=== PATIENT | female | born 1990 | race Caucasian/White ===

== ENCOUNTER → 2016-05-05 | Outpatient (CLI) | payer OTHER ==
--- NOTE | 2016-05-05 08:35 | US ---
EXAMINATION TYPE: US gallbladder DATE OF EXAM: 05/05/2016 7:57 AM COMPARISON: NONE CLINICAL HISTORY: K81.0 CHOLYSISTITIS, nausea and vomiting. EXAM MEASUREMENTS: Liver Length: 15.2 cm Gallbladder Wall: 0.2 cm CBD: 0.2 cm Right Kidney: 10.1 x 4.1 x 5.0 cm Findings: Pancreas: tail obscured by bowel gas Liver: Increased attenuation Gallbladder: cholelithiasis Evidence for sonographic Small's sign: no CBD: wnl Right Kidney: wnl IMPRESSION: 1. Cholelithiasis
== END | disposition home or self-care (01) ==
LOC: RADUSWWP 07:34
PROVIDERS: ATTEND Family Medicine
DX: K80.20 Calculus of gallbladder without cholecystitis without obstruction (principal)
CPT/HCPCS: 76705

== ENCOUNTER 2016-06-08 11:29 | Day surgery (SDC) | payer OTHER ==
[2016-06-05 13:18] VITALS: BMI 40.0
[~2016-06-08 11:29] MED LIST: LACTATED RINGERS 1,000 ML IV SCH
[2016-06-08 12:07] VITALS: TEMP 98
[2016-06-08] MEDS ORDERED: LACTATED RINGERS 1,000 ML IV ONE (12:18)
[2016-06-08] MEDS ORDERED: LIDOCAINE 1% 20 ML VIAL (10MG/ML) FOR IV START INTRADERMA ONE (12:19)
[2016-06-08] MEDS ORDERED: PROPOFOL 10 MG/ML 20 ML VIAL IV ONE (12:35)
--- NOTE | 2016-06-08 12:40 | P.GSHP ---
History of Present Illness H&P Date: 06/08/16 Chief Complaint: GERD This is a 26-year-old female who presents today for EGD. She's had issues with GERD. - Constitutional Constitutional: Reports as per HPI Past Medical History Past Medical History: Thyroid Disorder Additional Past Medical History / Comment(s): BACK PAIN, hx of anemia History of Any Multi-Drug Resistant Organisms: None Reported Past Surgical History: Appendectomy, Section, Orthopedic Surgery, Tonsillectomy Additional Past Surgical History / Comment(s): ORIF LEFT ANKLE. REPAIR OF ASD IN 1999 (OCCLUDER) Past Anesthesia/Blood Transfusion Reactions: No Reported Reaction Past Psychological History: No Psychological Hx Reported Smoking Status: Never smoker Past Alcohol Use History: None Reported Past Drug Use History: None Reported - Past Family History Mother Family Medical History: No Reported History Medications and Allergies Home Medications Medication Instructions Recorded Confirmed Type Iron 1 tab PO DAILY 08/14/14 06/05/16 History Levothyroxine Sodium [Synthroid] 175 mcg PO QAM 08/14/14 06/08/16 History Multivitamins, Thera [Theragran] 1 each PO DAILY 08/14/14 06/05/16 History Escitalopram [Lexapro] 10 mg PO HS 06/05/16 06/08/16 History Allergies Allergy/AdvReac Type Severity Reaction Status Date / Time No Known Allergies Allergy Verified 06/05/16 13:13 Surgical - Exam Vital Signs Temp Pulse Resp BP Pulse Ox 98.0 F 80 18 128/87 98 06/08/16 12:06 06/08/16 12:06 06/08/16 12:06 06/08/16 12:06 06/08/16 12:06 - General well developed, no distress - Eyes PERRL - ENT normal pinna - Neck no masses - Respiratory normal expansion - Cardiovascular Rhythm: regular - Abdomen Abdomen: soft Assessment and Plan Plan: GERD. We'll perform EGD.
--- NOTE | 2016-06-08 12:51 | P.OP ---
Date of Procedure: 06/08/16 Preoperative Diagnosis: GERD Postoperative Diagnosis: Antral gastritis Hiatal hernia Mild esophagitis Procedure(s) Performed: EGD Anesthesia: MAC Surgeon: Tristen Brennan Pathology: other (Antrum, esophagus) Condition: stable Disposition: PACU Description of Procedure: The patient's placed on the endoscopy table in the lateral position. She received IV sedation. The gastroscope some placed oropharynx and passed into the esophagus and into the stomach. Scope was then placed through the pylorus. The first and second portion of the duodenum appeared normal. Scope was then brought back into the antrum and this appeared mildly inflamed. A biopsies performed. The scope was retroflexed and the remainder of the stomach appeared normal. There was a hiatal hernia visualized. The GE junction was at 39 cm. The distal esophagus appeared normal. This area was biopsied. The proximal esophagus appeared normal. The scope was then withdrawn for patient.
[2016-06-08 12:59] VITALS: BP 102/71; PULSE 67; RESP 16
== END 2016-06-08 13:47 | disposition home or self-care (01) ==
LOC: ORWHC2ENDO 11:29
PROVIDERS: ATTEND Surgery
DX: K21.0 Gastro-esophageal reflux disease with esophagitis (principal); K44.9 Diaphragmatic hernia without obstruction or gangrene; K29.50 Unspecified chronic gastritis without bleeding; E07.9 Disorder of thyroid, unspecified; F32.9 Major depressive disorder, single episode, unspecified; Z79.899 Other long term (current) drug therapy
CPT/HCPCS: 81025; 88305; 88342; 43239; J2704

== ENCOUNTER 2016-06-12 12:25 | Inpatient (IN) | payer OTHER ==
[2016-06-26 11:10] VITALS: BMI 38.4
[2016-07-03] MEDS ORDERED: ceFAZolin 2 GM in SODIUM CHLORIDE 0.9% 100 ML IVPB ONE (05:00)
[2016-07-03] MEDS ORDERED: HEPARIN SODIUM,PORCINE 5,000 UNIT/ML 1 ML VIAL SQ ONE (05:00)
[2016-07-03] MEDS ORDERED: LACTATED RINGERS 1,000 ML IV SCH (05:29)
[2016-07-03] MEDS ORDERED: SCOPOLAMINE 1.5MG/72HR PATCH TRANSDERM ONE (05:29)
[2016-07-03] MEDS ORDERED: MIDAZOLAM 2 MG/2 ML VIAL IV PRN (05:29)
[2016-07-03] MEDS ORDERED: DEXAMETHASONE SOD PHOSPHATE 10 MG/ML 1 ML VIAL IV ONE (05:29)
[2016-07-03] MEDS ORDERED: ONDANSETRON 4 MG/2 ML VIAL IVP ONE (05:29)
[2016-07-03] MEDS ORDERED: LIDOCAINE 1% 20 ML VIAL (10MG/ML) FOR IV START INTRADERMA PRN (05:29)
--- NOTE | 2016-07-03 13:26 | P.GSHP ---
History of Present Illness H&P Date: 07/03/16 Chief Complaint: GERD, right upper quadrant pain This a 26-year-old female who presents with GERD and right upper quadrant pain. Patient's found have gallstones on ultrasound.The patient has had long- standing problems with reflux esophagitis. The patient underwent recent EGD is found have evidence of esophagitis. Patient has been well informed on the procedure of laparoscopic Love fundoplication. The patient is aware the risk of the conversion to the open procedure, risk of injury to the stomach, liver and spleen. The patient is also a risk of recurrent GERD and dysphagia symptoms. The patient understands there is a postoperative diet of full liquids for 2 weeks after surgery. - Constitutional Constitutional: Reports as per HPI Past Medical History Past Medical History: GERD/Reflux, Thyroid Disorder Additional Past Medical History / Comment(s): hiatal hernia, hx of anemia, hx heart murmer/ASD, varicose vein, gallstones, History of Any Multi-Drug Resistant Organisms: None Reported Past Surgical History: Appendectomy, Section, Orthopedic Surgery, Tonsillectomy Additional Past Surgical History / Comment(s): ORIF LEFT ANKLE. REPAIR OF ASD IN 1999 (amplatzer device) Past Anesthesia/Blood Transfusion Reactions: No Reported Reaction Past Psychological History: No Psychological Hx Reported Smoking Status: Never smoker Past Alcohol Use History: None Reported Past Drug Use History: None Reported - Past Family History Mother Family Medical History: No Reported History Medications and Allergies Home Medications Medication Instructions Recorded Confirmed Type Iron 18 mg PO DAILY 08/14/14 07/03/16 History Multivitamins, Thera [Theragran] 1 each PO DAILY 08/14/14 07/03/16 History Escitalopram [Lexapro] 10 mg PO HS 06/05/16 07/03/16 History Levothyroxine Sodium [Synthroid] 200 mcg PO QAM 06/26/16 07/03/16 History Allergies Allergy/AdvReac Type Severity Reaction Status Date / Time No Known Allergies Allergy Verified 07/03/16 11:47 Surgical - Exam Vital Signs Temp Pulse Resp BP Pulse Ox 98.0 F 91 16 106/68 96 07/03/16 11:44 07/03/16 11:44 07/03/16 11:44 07/03/16 11:44 07/03/16 11:44 - General well developed, no distress - Eyes PERRL - ENT normal pinna - Neck no masses - Respiratory normal expansion - Cardiovascular Rhythm: regular - Abdomen Mild right upper quadrant pain Abdomen: soft Assessment and Plan Plan: GERD. We'll perform laparoscopic Love fundal plication. Cholelithiasis, right upper quadrant pain. We'll perform laparoscopic cholecystectomy.
[2016-07-03] MEDS ORDERED: ROCURONIUM BROMIDE 10 MG/ML 10 ML VIAL IV ONE (13:29)
[2016-07-03] MEDS ORDERED: PROPOFOL 10 MG/ML 20 ML VIAL IV ONE (13:29)
[2016-07-03] MEDS ORDERED: MIDAZOLAM 2 MG/2 ML VIAL ONE (13:29)
[2016-07-03] MEDS ORDERED: HYDROmorphone (PF) 1 MG/ML ONE (13:29)
[2016-07-03] MEDS ORDERED: GLYCOPYRROLATE 0.2 MG/ML 2 ML VIAL ONE (13:29)
[2016-07-03] MEDS ORDERED: fentaNYL (PF) 50 MCG/ML 2 ML AMP ONE (13:29)
[2016-07-03] MEDS ORDERED: NEOSTIGMINE 1 MG/ML 10 ML VIAL ONE (13:29)
[2016-07-03] MEDS ORDERED: SUCCINYLCHOLINE CHLORIDE 100 MG/5 ML SYR IV ONE (13:29)
[2016-07-03] MEDS ORDERED: LIDOCAINE 1% INJ 10MG/ML (20 ML MDV) ONE (13:29)
[2016-07-03] MEDS ORDERED: BUPIVACAIN-EPI 0.25%-1:200,000 30 ML VIAL SQ ONE (14:02)
[2016-07-03] MEDS ORDERED: ACETAMINOPHEN TAB 325 MG TAB PO PRN (14:58)
[2016-07-03] MEDS ORDERED: NALOXONE 0.4 MG/ML 1 ML VIAL IV PRN (14:58)
--- NOTE | 2016-07-03 14:58 | P.OP ---
Date of Procedure: 07/03/16 Preoperative Diagnosis: GERD Cholelithiasis Cholecystitis Postoperative Diagnosis: GERD Cholecystitis Cholelithiasis Procedure(s) Performed: Laparoscopic Love fundoplication Laparoscopic cholecystectomy Anesthesia: RUTHIE Surgeon: Tristen Brennan Estimated Blood Loss (ml): 29 Pathology: other (Gallbladder) Condition: stable Disposition: PACU Description of Procedure: The patient was placed on the operating table in the supine position. The patient received general anesthesia. And was placed in dorsal lithotomy position. The patient was prepped and draped in the usual sterile fashion. The skin incision sites were anesthetized with 1% local Xylocaine. The skin was incised in the left periumbilical area and then using a blade less 5 mm trocar under direct visualization panel cavity was entered. After adequate insufflation the laparoscope was then placed into the peritoneal cavity. Next a 5 mm trochars placed in the right epigastric position. Another 5 millimeter trocar the right lateral position. Another 5 millimeter trocar in the left lateral position a 5 mm trocar is placed in the left epigastric position. And then the initial 5 mm trocar was exchanged for a 10 mm trocar. The left lateral lobe liver was retracted. The hernia was seen. The crural defect was then dissected using the Harmonic scissors device. A 360 crural dissection was performed the esophagus stomach was reduced back into the peritoneal Cavity. The crural defect was then closed using 2-0 Ethibond suture. Next the fundus of the stomach was mobilized using the Centerpoint scissors device. and then a 58-Sinhala bougie dilator was placed oropharynx passed into the esophagus and stomach the fundal plication wrap was then performed by grasping the fundus posteriorly and bringing it around the esophagus and stomach fundoplication was then performed using 2-0 Ethibond suture. Care was taken that the fundal location rested over top of the intra-abdominal esophagus. There was no injury seen to the stomach or esophagus. The dilator was then withdrawn. The abdomen was irrigated there is no bleeding seen. Next, a 5 mm trocar was placed at the umbilicus and another 5 mm trocar was placed in the right subcostal area. The patient's placed in the right side up. The camera was repositioned to the umbilicus. The gallbladder is visualized entering the gallbladder is grasped the fundus and infundibulum. Traction the gallbladder was placed in the lateral and cephalad positionsr. The cystic duct was then bluntly dissected the cystic duct was seen entering the common bile duct. The cystic duct was then clipped using a 5 mm laparoscopic clipper and then the cystic duct was divided using Harmonic scissors. The cystic artery was then divided with the Harmonic scissors. The gallbladder was then removed from the liver bed using the Harmonic scissors. The gallbladder was then brought up through the epigastric 8 mm trocar. The liver bed was inspected for bleeding. There is no bleeding seen. The abdomen was irrigated. The trochars were then withdrawn and then skin incision sites were closed using 3-0 Monocryl suture Steri-Strips are applied. Patient thought procedure well and sent to recovery room in stable condition.
[2016-07-03] MEDS: HYDROmorphone 1 MG/ML 1 ML SYRINGE IVP PRN ×4 (15:12→22:35)
[2016-07-03] MEDS ORDERED: LACTATED RINGERS 1,000 ML IV ONE (16:30)
[2016-07-03] MEDS: HYDROcodone/APAP 5-325MG 1 EACH TAB PO PRN (20:36)
[2016-07-03] MEDS: HEPARIN SODIUM,PORCINE 5,000 UNIT/ML 1 ML VIAL SQ SCH (20:36)
[2016-07-03] MEDS: LACTATED RINGERS 1,000 ML IV ONE (20:36)
[2016-07-03] MEDS: ONDANSETRON 4 MG/2 ML VIAL IVP PRN (20:59)
[2016-07-04] MEDS: diphenhydrAMINE 25 MG CAP PO PRN ×3 (00:29→12:55)
[2016-07-04] MEDS: HYDROmorphone 1 MG/ML 1 ML SYRINGE IVP PRN ×2 (01:38→06:32)
[2016-07-04] MEDS: HYDROcodone/APAP 5-325MG 1 EACH TAB PO PRN ×3 (03:28→15:34)
[2016-07-04] MEDS: LACTATED RINGERS 1,000 ML IV ONE (03:30)
[2016-07-04] MEDS: ONDANSETRON 4 MG/2 ML VIAL IVP PRN (06:31)
--- NOTE | 2016-07-04 08:39 | FL ---
EXAMINATION TYPE: FL UGI w esophagus DATE OF EXAM: 07/04/2016 8:35 AM COMPARISON: NONE HISTORY: Cholecystectomy and Love fundoplication. TECHNIQUE: A single contrast UGI study is performed. FINDINGS: There is prompt egress of contrast out of the esophagus into the stomach. There is no evide nce of extravasation. The ligament of Treitz is in normal location. There are gallbladder clips in th e right upper quadrant. IMPRESSION: 1. Status post Love fundoplication. 2. Status post cholecystectomy.
[2016-07-04] MEDS: HEPARIN SODIUM,PORCINE 5,000 UNIT/ML 1 ML VIAL SQ SCH (09:29)
[2016-07-04 11:32] VITALS: BP 110/66; PULSE 106; RESP 20; TEMP 98.4
--- NOTE | 2016-07-04 14:58 | P.PN ---
Progress Note - Text The patient is a day 1 post laparoscopic cholecystectomy and Love fundoplication and she is stable. Tolerating a diet. Minimal abdominal discomfort. No nausea or vomiting. Upper GI barium swallow was unremarkable. On examination the patient is awake alert comfortable vitals and normal temperature is normal. Abdomen is quite soft usual postoperative tenderness. Trocar sites are clean without infection. Impression doing well postop. Recommendation continued discharge from a surgical standpoint. Routine. Dr. Brennan In a week. Joe For pain.
== END 2016-07-04 15:41 | disposition home or self-care (01) | DRG 419 ==
LOC: 2ORWHC 07-03 11:19 → 6PED 07-03 14:43
PROVIDERS: ADMIT Surgery; ATTEND Surgery
PROC: 0FT44ZZ Resection of Gallbladder, Percutaneous Endoscopic Approach (ICD-10-PCS; principal; 2016-07-03 12:30)
PROC: 0DV44ZZ Restriction of Esophagogastric Junction, Percutaneous Endoscopic Approach (ICD-10-PCS; 2016-07-03 12:30)
DX: K80.10 Calculus of gallbladder with chronic cholecystitis without obstruction (principal); E07.9 Disorder of thyroid, unspecified; K21.0 Gastro-esophageal reflux disease with esophagitis; K44.9 Diaphragmatic hernia without obstruction or gangrene; I83.90 Asymptomatic varicose veins of unspecified lower extremity; F39 Unspecified mood [affective] disorder; Z71.3 Dietary counseling and surveillance; Z90.49 Acquired absence of other specified parts of digestive tract; Z87.81 Personal history of (healed) traumatic fracture; Z87.74 Personal history of (corrected) congenital malformations of heart and circulatory system; Z79.899 Other long term (current) drug therapy
CPT/HCPCS: 74240; 88304

== ENCOUNTER → 2016-07-01 | Outpatient (CLI) | payer OTHER ==
[2016-07-01 17:33] LABS: Basophils % (A) 0 %; CHCM 33.7; Eosinophils # (A) 0.2 k/uL (0-0.7); Eosinophils % (A) 2 %; HCT 43.4 % (34.0-46.0); HGB 14.5 gm/dL (11.4-16.0); Luc % (Auto) 2; Lymphocytes % (A) 23 %; MCH 29.9 pg (25.0-35.0); MCHC 33.4 g/dL (31.0-37.0); MCV 89.6 fL (80.0-100.0); Monocytes # (A) 0.4 k/uL (0-1.0); Monocytes % (A) 5 %; Neutrophils # (A) 5.8 k/uL (1.3-7.7); Neutrophils % (A) 67 %; RBC 4.84 m/uL (3.80-5.40); RDW 13.2 % (11.5-15.5); WBC 8.7 k/uL (3.8-10.6); WBC (Perox) 8.37
== END ==
LOC: LABPAT 17:22
PROVIDERS: ATTEND Surgery
DX: Z01.812 Encounter for preprocedural laboratory examination (principal)
CPT/HCPCS: 85025

== ENCOUNTER → 2018-11-12 | Outpatient (CLI) | payer OTHER ==
[2018-11-12 12:08] LABS: Basophils % (A) 0 %; Eosinophils # (A) 0.2 k/uL (0-0.7); Eosinophils % (A) 3 %; HCT 40.2 % (34.0-46.0); HGB 12.6 gm/dL (11.4-16.0); Lymphocytes # (A) 1.4 k/uL (1.0-4.8); Lymphocytes % (A) 26 %; MCH 28.9 pg (25.0-35.0); MCHC 31.3 g/dL (31.0-37.0); MCV 92.1 fL (80.0-100.0); Mean Platelet Volume 6.1; Monocytes # (A) 0.4 k/uL (0-1.0); Monocytes % (A) 8 %; Neutrophils # (A) 3.1 k/uL (1.3-7.7); Neutrophils % (A) 59 %; Platelet Count 356 k/uL (150-450); RBC 4.37 m/uL (3.80-5.40); WBC 5.3 k/uL (3.8-10.6)
== END | disposition home or self-care (01) ==
LOC: LABWHC1 11:36
PROVIDERS: ATTEND Psychiatry & Neurology Psychiatry
DX: F32.9 Major depressive disorder, single episode, unspecified (principal)
CPT/HCPCS: 36415; 84439; 84443; 84479; 85025

== ENCOUNTER → 2019-05-24 | Outpatient (CLI) | payer OTHER ==
--- NOTE | 2019-05-24 14:03 | FL ---
EXAMINATION TYPE: FL UGI air w esophagus DATE OF EXAM: 05/24/2019 COMPARISON: Prior exam 07/04/2016 HISTORY: Dysphasia TECHNIQUE: A double contrast UGI study is performed. FINDINGS: Patient unable to retain the crystals for maximal distensibility The esophagus shows abnormal filling defect along the anterior wall the proximal cervical esophagus a t approximately the C3-4 level. The stomach shows normal distensibility, peristalsis, and mucosal folds. Postprocedural changes noted at the gastroesophageal junction compatible with Love fundoplication. No evidence of any mass or u lcer disease. No significant gastroesophageal reflux was seen during real time performance of this s tudy. The duodenal bulb, sweep, and proximal small bowel loops are unremarkable. 2 minutes 29 seconds fluoroscopy time, 176 images obtained IMPRESSION: There is some hesitancy in initiating the swallow. Abnormal filling defect along the prox imal aspect of the esophagus as described, recommend direct visualization.
== END | disposition home or self-care (01) ==
LOC: RADFLMAIN 09:18
PROVIDERS: ATTEND Surgery
DX: R93.5 Abnormal findings on diagnostic imaging of other abdominal regions, including retroperitoneum (principal)
CPT/HCPCS: 74246

== ENCOUNTER 2019-05-26 07:25 | Day surgery (SDC) | payer OTHER ==
[2019-05-24 11:26] VITALS: BMI 37.5
[~2019-05-26 07:25] MED LIST changes: +LIDOCAINE 1% 20 ML VIAL (10MG/ML) FOR IV START INTRADERMA PRN
[2019-05-26 07:44] VITALS: RESP 16; TEMP 97
[2019-05-26] MEDS ORDERED: LIDOCAINE 1% INJ 10MG/ML (20 ML MDV) ONE (08:06)
[2019-05-26] MEDS ORDERED: PROPOFOL 10 MG/ML 20 ML VIAL IV ONE (08:06)
--- NOTE | 2019-05-26 08:10 | P.GSHP ---
History of Present Illness H&P Date: 05/26/19 Chief Complaint: Dysphagia This a 29-year-old female who has had complaints of dysphagia. Patient Nolantz today for EGD. Her recent esophagram shows a possible area of narrowing in the proximal esophagus. She will undergo direct visualization today with EGD. Past Medical History Past Medical History: GERD/Reflux, Thyroid Disorder Additional Past Medical History / Comment(s): hiatal hernia, hx of anemia, hx heart murmer/ASD, varicose vein, gallstones History of Any Multi-Drug Resistant Organisms: None Reported Past Surgical History: Appendectomy, Section, Cholecystectomy, Orthopedic Surgery, Tonsillectomy Additional Past Surgical History / Comment(s): ORIF LEFT ANKLE. REPAIR OF ASD IN 1999 (amplatzer device),larry parker,c sect x2 Past Anesthesia/Blood Transfusion Reactions: No Reported Reaction, Motion Sickness Smoking Status: Never smoker - Past Family History Mother Family Medical History: No Reported History Medications and Allergies Home Medications Medication Instructions Recorded Confirmed Type Iron 325 mg PO DAILY 08/14/14 05/24/19 History Levothyroxine Sodium [Synthroid] 175 mcg PO QAM 06/26/16 05/24/19 History Calcium Carbonate [Calcium] 600 mg PO DAILY 05/24/19 05/24/19 History Labetalol HCl 100 mg PO TID 05/24/19 05/24/19 History Pnv No.95/Ferrous Fum/Folic AC 1 each PO DAILY 05/24/19 05/24/19 History [ Multivitamin Tablet] Sertraline HCl [Zoloft] 150 mg PO QAM 05/24/19 05/24/19 History buPROPion XL [Wellbutrin Xl] 150 mg PO QAM 05/24/19 05/24/19 History lamoTRIgine 100 mg PO HS 05/24/19 05/24/19 History Allergies Allergy/AdvReac Type Severity Reaction Status Date / Time Milk Containing Products Allergy Nausea & Verified 05/24/19 11:17 [Dairy] Vomiting,abdominal cramping Surgical - Exam Vital Signs Temp Pulse Resp BP Pulse Ox 97 F L 84 16 150/76 97 05/26/19 07:43 05/26/19 07:43 05/26/19 07:43 05/26/19 07:43 05/26/19 07:43 - General well developed, well nourished, no distress - Eyes PERRL - ENT normal pinna - Neck no masses - Respiratory normal expansion - Cardiovascular Rhythm: regular - Abdomen Abdomen: soft, non tender Assessment and Plan Assessment: Dysphagia. We'll perform EGD.
--- NOTE | 2019-05-26 08:19 | P.OP ---
Date of Procedure: 05/26/19 Preoperative Diagnosis: Dysphagia Postoperative Diagnosis: Antral gastritis Procedure(s) Performed: EGD Anesthesia: MAC Surgeon: Tristen Brennan Estimated Blood Loss (ml): 5 Pathology: other (Antrum) Condition: stable Disposition: PACU Description of Procedure: The patient's placed on the endoscopy table in the lateral position. She received IV sedation. The gastroscope placed oropharynx and passed in the esophagus and into the stomach. Scope was then placed through the pylorus. The first and second portion of the duodenum appeared normal. Scope was then brought back the antrum this. Mildly inflamed. A biopsies performed. Scope was retroflexed and the remainder stomach appeared normal. There was no evidence of a hiatal hernia. The GE junction was at 40 cm the distal esophagus appeared normal. The proximal esophagus appeared normal. Scope was then withdrawn from patient.
[2019-05-26 08:35] VITALS: BP 111/78; PULSE 77
== END 2019-05-26 08:51 | disposition home or self-care (01) ==
LOC: ORWHC2ENDO 07:25
PROVIDERS: ATTEND Surgery
DX: K29.50 Unspecified chronic gastritis without bleeding (principal); K63.89 Other specified diseases of intestine; K21.9 Gastro-esophageal reflux disease without esophagitis; E07.9 Disorder of thyroid, unspecified; D64.9 Anemia, unspecified; I83.90 Asymptomatic varicose veins of unspecified lower extremity; I10 Essential (primary) hypertension; E66.01 Morbid (severe) obesity due to excess calories; Z68.37 Body mass index [BMI] 37.0-37.9, adult; Z87.74 Personal history of (corrected) congenital malformations of heart and circulatory system; Z87.19 Personal history of other diseases of the digestive system; Z90.49 Acquired absence of other specified parts of digestive tract; Z98.890 Other specified postprocedural states; Z90.89 Acquired absence of other organs; Z87.81 Personal history of (healed) traumatic fracture; Z87.898 Personal history of other specified conditions; Z79.899 Other long term (current) drug therapy; Z79.890 Hormone replacement therapy; Z91.011 Allergy to milk products; Z97.2 Presence of dental prosthetic device (complete) (partial)
CPT/HCPCS: 81025; 88305; 43239; J2001; J2704

== ENCOUNTER 2019-08-15 09:53 | Emergency (ER) | payer OTHER ==
[2019-08-15 10:09] VITALS: RESP 20
[2019-08-15] MEDS ORDERED: HYDROmorphone 0.5 MG/0.5 ML SYRINGE IVP STA (10:09)
--- NOTE | 2019-08-15 10:33 | XR ---
EXAMINATION TYPE: XR knee limited LT DATE OF EXAM: 08/15/2019 CLINICAL HISTORY: pain TECHNIQUE: 2 views of the left knee are obtained. COMPARISON: None. FINDINGS: There is no acute fracture. There is lateral dislocation of the patella. The tri-compartm ent joint spaces appear within normal limits. The overlying soft tissue appears unremarkable. IMPRESSION: Patellar dislocation without evidence for fracture. ICD 10 NO FRACTURE, INITIAL EVALUATION
[2019-08-15] MEDS ORDERED: ACET/COD 300 MG/30 MG STARTER PACK 6 TAB BTL PO STA (10:44)
--- NOTE | 2019-08-15 10:46 | ED ---
Lower Extremity Injury HPI - General Chief Complaint: Extremity Injury, Lower Stated Complaint: [facility] lt knee injury/ Time Seen by Provider: 08/15/19 09:59 Source: patient, EMS Mode of arrival: ambulatory Limitations: no limitations - History of Present Illness Initial Comments: 29-year-old female presents today for chief complaint of left knee pain. Kate ent states she was attempting to lift a box into a bus when her left kneecap out of place. She states that it looks like her knee cap is sideways. Patient then cried and could not walk. She was brought to ER for evaluation. No head injury, denies neck pain, injury to hips/ankles. Patient has no additional complaints. Upon arrival patient uncomfortable-obvious patellar dislocation. - Related Data Home Medications Medication Instructions Recorded Confirmed Iron 325 mg PO DAILY 08/14/14 05/24/19 Levothyroxine Sodium [Synthroid] 175 mcg PO QAM 06/26/16 05/24/19 Calcium Carbonate [Calcium] 600 mg PO DAILY 05/24/19 05/24/19 Labetalol HCl 100 mg PO TID 05/24/19 05/24/19 Pnv No.95/Ferrous Fum/Folic AC 1 each PO DAILY 05/24/19 05/24/19 [ Multivitamin Tablet] Sertraline HCl [Zoloft] 150 mg PO QAM 05/24/19 05/24/19 buPROPion XL [Wellbutrin Xl] 150 mg PO QAM 05/24/19 05/24/19 lamoTRIgine 100 mg PO HS 05/24/19 05/24/19 Allergies Allergy/AdvReac Type Severity Reaction Status Date / Time Milk Containing Products Allergy Nausea & Verified 05/24/19 11:17 [Dairy] Vomiting,abdominal cramping Review of Systems ROS Statement: Those systems with pertinent positive or pertinent negative responses have been documented in the HPI. ROS Other: All systems not noted in ROS Statement are negative. Past Medical History Past Medical History: Thyroid Disorder Additional Past Medical History / Comment(s): hiatal hernia, hx of anemia, hx heart murmer/ASD, varicose vein, gallstones, History of Any Multi-Drug Resistant Organisms: None Reported Past Surgical History: Appendectomy, Section, Orthopedic Surgery, Tonsillectomy Additional Past Surgical History / Comment(s): ORIF LEFT ANKLE. REPAIR OF ASD IN 2000 (amplatzer device) Past Anesthesia/Blood Transfusion Reactions: No Reported Reaction Past Psychological History: No Psychological Hx Reported Smoking Status: Never smoker Past Alcohol Use History: None Reported Past Drug Use History: None Reported - Past Family History Mother Family Medical History: No Reported History General Exam - General Exam Comments Initial Comments: General: The patient is awake and alert, in no distress, and does not appear acutely ill. Eye: Pupils are equal, round and reactive to light, extra-ocular movements are intact. No nystagmus. There is normal conjunctiva bilaterally. No signs of icterus. Ears, nose, mouth and throat: There are moist mucous membranes and no oral lesions. Neck: The neck is supple, there is no tenderness or JVD. Cardiovascular: There is a regular rate and rhythm. No murmur, rub or gallop is appreciated. Respiratory: Lungs are clear to auscultation, respirations are non-labored, breath sounds are equal. No wheezes, stridor, rales, or rhonchi. Gastrointestinal: Soft, non-distended, non-tender abdomen without masses or organomegaly noted. There is no rebound or guarding present. Musculoskeletal:Wont move left knee, moves left ankle no difficulty. Lateral displacement of patella. Sensation intact of the LE b/l. DP pulses equal bilaterally 2+. Wiggles toes, no foot drop. Finn bruising posterior knee nor pain. Neurological: A&O x 3. CN II-XII intact grossly, There are no obvious motor or sensory deficits. Coordination appears grossly intact. Speech is normal. Skin: Skin is warm and dry and no rashes or lesions are noted. Psychiatric: Cooperative, appropriate mood & affect, normal judgment. Limitations: no limitations Course Vital Signs 08/15/19 08/15/19 08/15/19 10:00 10:57 11:09 Pulse Rate 70 72 72 Respiratory 20 20 20 Rate Blood Pressure 126/100 144/89 144/89 O2 Sat by Pulse 98 98 98 Oximetry Procedures - Orthopedic Joint Reduction Joint #1 Consent Obtained: verbal consent Side: left Joint Reduction Location: knee/patella Technique Used: other (extension with medial pressure on the patella) Post-Reduction Neuro Exam: intact Post-Reduction Vascular Exam: intact Post Reduction X-Ray Obtained: No (Reduction with ROM.) Splint Applied: Yes (Knee immobilizer) Patient Tolerated Procedure: well Medical Decision Making - Medical Decision Making 29-year-old female presenting for left knee pain. Patellar dislocation evident on exam/XR. Patient neurovascularly intact. Reduced. No change in neurovascular exam. Patient will be discharged with PCP/orthopedic with instruction to use knee immobilize and crutches during ambulation. Patient provided pain medications in Er. Discharged appearing well after discussing case with Dr. Hai Chris Clinical Impression: Dislocation of left patella Disposition: HOME SELF-CARE Condition: Good Instructions (If sedation given, give patient instructions): Patellar Dislocation (ED) Additional Instructions: Please use medication as discussed. Please follow-up with family doctor in the next 2 days, please follow-up with orthopedic surgery in the next 1 week--use knee immobilizer to the stablize knee while ambulating and crutches for comfort. Please return to emergency room if the symptoms increase or worsen or for any other concerns. Is patient prescribed a controlled substance at d/c from ED?: No Referrals: Justice Coleman DO [Primary Care Provider] - 1-2 days Dario Choudhury DO [Doctor of Osteopathic Medicine] - 1-2 days Time of Disposition: 10:45
[2019-08-15 10:58] VITALS: BP 144/89; PULSE 72
== END 2019-08-15 11:11 | disposition home or self-care (01) ==
LOC: EC 09:53
DX: S83.005A Unspecified dislocation of left patella, initial encounter (principal); E07.9 Disorder of thyroid, unspecified; Z79.890 Hormone replacement therapy; Z79.899 Other long term (current) drug therapy; Z91.011 Allergy to milk products; Z98.890 Other specified postprocedural states; X58.XXXA Exposure to other specified factors, initial encounter; Y93.89 Activity, other specified; Y92.69 Other specified industrial and construction area as the place of occurrence of the external cause
CPT/HCPCS: 73560; 96374; 99284; 27560; J1170

== ENCOUNTER 2020-04-18 08:45 | Day surgery (SDC) | payer OTHER ==
[2020-04-16 14:07] VITALS: BMI 37.9
--- NOTE | 2020-04-17 08:11 | P.HPOB ---
History of Present Illness H&P Date: 04/17/20 Chief Complaint: Family planning 30-year-old presents for laparoscopic tubal ligation. All risks, benefits, alternatives were discussed with the patient including that this is not a reversible procedure. Review of Systems All systems: negative Constitutional: Denies chills, Denies fever Eyes: denies blurred vision, denies pain Ears, nose, mouth and throat: Denies headache, Denies sore throat Cardiovascular: Denies chest pain, Denies shortness of breath Respiratory: Denies cough Gastrointestinal: Denies abdominal pain, Denies diarrhea, Denies nausea, Denies vomiting Genitourinary: Denies dysuria, Denies hematuria Musculoskeletal: Denies myalgias Integumentary: Denies pruritus, Denies rash Neurological: Denies numbness, Denies weakness Psychiatric: Denies anxiety, Denies depression Endocrine: Denies fatigue, Denies weight change Past Medical History Past Medical History: Thyroid Disorder Additional Past Medical History / Comment(s): hiatal hernia, hx of anemia, hx heart murmer/ASD, varicose vein, gallstones History of Any Multi-Drug Resistant Organisms: None Reported Past Surgical History: Appendectomy, Section, Cholecystectomy, Orthopedic Surgery, Tonsillectomy Additional Past Surgical History / Comment(s): ORIF LEFT ANKLE. REPAIR OF ASD IN 1999 (amplatzer device),hiatal hernia repair Past Anesthesia/Blood Transfusion Reactions: No Reported Reaction Additional Past Anesthesia/Blood Transfusion Reaction / Comment(s): no hx blood transfusion Smoking Status: Never smoker - Past Family History Mother Family Medical History: No Reported History Medications and Allergies Home Medications Medication Instructions Recorded Confirmed Type Levothyroxine Sodium [Synthroid] 175 mcg PO QAM 06/26/16 04/16/20 History Labetalol HCl 100 mg PO BID 05/24/19 04/16/20 History Sertraline HCl [Zoloft] 100 mg PO QAM 05/24/19 04/16/20 History Isibloom Control 1 tab PO QAM 04/16/20 04/16/20 History Multivitamins, Thera [Multivitamin 1 tab PO DAILY 04/16/20 04/16/20 History (formulary)] Allergies Allergy/AdvReac Type Severity Reaction Status Date / Time Milk Containing Products Allergy Nausea & Verified 04/16/20 14:00 [Dairy] Vomiting,abdominal cramping Exam Osteopathic Statement: *. No significant issues noted on an osteopathic structural exam other than those noted in the History and Physical/Consult. Heart: Regular rate and rhythm Lungs: Clear to auscultation bilaterally Abdomen: Soft, nontender Extremities: Negative Homans sign Assessment and Plan (1) Family planning Status: Acute Code(s): Z30.09 - ENCOUNTER FOR OTH GENERAL CNSL AND ADVICE ON CONTRACEPTION SNOMED Code(s): 670122577 Plan: 1. Laparoscopic tubal ligation
[~2020-04-18 08:45] MED LIST changes: +HYDROmorphone 0.5 MG/0.5 ML SYRINGE IVP PRN; -LIDOCAINE 1% 20 ML VIAL (10MG/ML) FOR IV START INTRADERMA PRN; +Pre Op ABX Message 1 EACH MISC MISCELLANE ONE; +fentaNYL (PF) 50 MCG/ML 2 ML AMP IV PRN
[2020-04-18] MEDS: ONDANSETRON 4 MG/2 ML VIAL IVP ONE ×3 (09:12→13:07)
[2020-04-18] MEDS: DEXAMETHASONE SOD PHOSPHATE 4 MG/ML 1 ML VIAL IV ONE ×2 (09:12→09:13)
[2020-04-18] MEDS ORDERED: BUPIVACAINE (PF) 0.25% 30 ML VIAL SQ ONE ×2 (11:54→12:45)
[2020-04-18] MEDS ORDERED: MIDAZOLAM 2 MG/2 ML VIAL ONE (11:59)
[2020-04-18] MEDS ORDERED: SUCCINYLCHOLINE CHLORIDE 100 MG/5 ML SYR IV ONE (11:59)
[2020-04-18] MEDS ORDERED: NEOSTIGMINE 1 MG/ML 10 ML VIAL ONE (11:59)
[2020-04-18] MEDS ORDERED: PROPOFOL 10 MG/ML 20 ML VIAL IV ONE (11:59)
[2020-04-18] MEDS ORDERED: ROCURONIUM 10 MG/ML (10 ML VIAL) IV ONE (11:59)
[2020-04-18] MEDS ORDERED: GLYCOPYRROLATE 0.2 MG/ML 2 ML VIAL ONE (11:59)
[2020-04-18] MEDS ORDERED: HYDROmorphone (PF) 1 MG/ML ONE (11:59)
[2020-04-18] MEDS ORDERED: fentaNYL (PF) 50 MCG/ML 2 ML AMP ONE (11:59)
[2020-04-18] MEDS ORDERED: LIDOCAINE 1% INJ 10MG/ML (20 ML MDV) ONE (11:59)
--- NOTE | 2020-04-18 12:59 | P.OP ---
Date of Procedure: 04/18/20 Preoperative Diagnosis: 1. family planning Postoperative Diagnosis: family planning Procedure(s) Performed: laparoscopic tubal ligation Anesthesia: RUTHIE Surgeon: Maira Sebastian Estimated Blood Loss (ml): 2 IV fluids (ml): 300 Urine output (ml): 40 Pathology: none sent Condition: stable Disposition: PACU Operative Findings: adhered to the anterior pelvic wall, the omentum is adherent to the anterior abdominal wall, both fallopian tubes and ovaries were slightly mobile with some adhesions to the pelvic sidewall. Description of Procedure: Patient is taken the operating room and general anesthesia was obtained without difficulty. She is prepped and draped in normal sterile fashion dorsal lithotomy position, legs placed in the Isac stirrups. Bladder was drained of all urine. [place] speculum was placed in vagina the anterior lip the cervix was grasped and tilted tenaculum. The uterus sounded to 8 cm. Kroner was placed. Attention then turned to the abdomen and gloves were changed. A 10 mm and from vocal incision was made with a scalpel and a 10 mm optical trocar was placed under direct visualization. Immediately omental adhesions were noted. It was difficult to visualize the bilateral fallopian tubes and uterus itself. The uterus is found to be initially in the anteverted position with the anterior uterus and bladder attached to the anterior pelvic wall. Decision was made to put the second trocar in the left lower quadrant. A 5 mm optical trocar was placed in this location Under direct visualization. As careful to identify the round ligament the fallopian tube and ovary on the left side and the left fallopian tube was grasped the Kleppinger and fulgurated 2-3 cm in the ampullar portion. I then removed the camera to be able to visualize the right adnexa. The right side anatomy was identified, the round ligament the fallopian tube and the ovary. The fallopian tube was grasped with a Kleppinger and fulgurated 2-3 cm in the ampullar portion. All instruments were removed from the abdomen and pelvis. The 10 mm incision was closed with 0 Vicryl and the fascial layer and then 4-0 Vicryl in a subcuticular fashion. The 5 mm incision was closed with 4-0 Vicryl in a subcuticular fashion. Patient tolerated procedure well, sponge and instrument counts correct 2. She is taken to recovery in stable condition.
[2020-04-18 13:09] VITALS: RESP 16; TEMP 98
[2020-04-18] MEDS ORDERED: PROMETHAZINE INJ 25 MG/ML 1 ML VIAL IVPB ONE (13:12)
[2020-04-18] MEDS ORDERED: KETOROLAC 15 MG/ML 1 ML VIAL IVP ONE (13:26)
[2020-04-18 14:43] VITALS: BP 128/84; PULSE 61
[2020-04-18] MEDS ORDERED: HYDROcodone/APAP 7.5-325MG 1 EACH TAB ONE (14:48)
[2020-04-18] MEDS ORDERED: HYDROcodone/APAP 7.5-325MG 1 EACH TAB PO ONE (14:49)
== END 2020-04-18 15:23 | disposition home or self-care (01) ==
LOC: OR 08:45
PROVIDERS: ATTEND Obstetrics & Gynecology
DX: Z30.2 Encounter for sterilization (principal); N85.4 Malposition of uterus; E07.9 Disorder of thyroid, unspecified; I83.90 Asymptomatic varicose veins of unspecified lower extremity; Z90.49 Acquired absence of other specified parts of digestive tract; Z98.891 History of uterine scar from previous surgery; Z90.89 Acquired absence of other organs; Z98.890 Other specified postprocedural states; Z79.3 Long term (current) use of hormonal contraceptives; Z79.890 Hormone replacement therapy; Z79.899 Other long term (current) drug therapy; Z91.011 Allergy to milk products; I10 Essential (primary) hypertension; Z97.2 Presence of dental prosthetic device (complete) (partial)
CPT/HCPCS: 81025; 58670; J2250; J1100; J2550; J2710; J2405; J2001; J3010; J1170 ×2; J1885; J0330; J2704